=== PATIENT | female | born 1950 | race Caucasian/White ===

== ENCOUNTER → 2023-12-27 06:27 | Day surgery (SDC) | payer MEDICARE, SELFPAY | LOC: GI 06:27 | PROVIDERS: ATTENDING PHYSICIAN Internal Medicine; FAMILY PHYSICIAN Internal Medicine | DX: Z12.11 Encounter for screening for malignant neoplasm of colon (principal); Q43.8 Other specified congenital malformations of intestine; K56.2 Volvulus; K64.8 Other hemorrhoids; K64.4 Residual hemorrhoidal skin tags | CPT/HCPCS: 45378 ==

== ENCOUNTER → 2025-01-06 06:10 | Day surgery (SDC) | payer MEDICARE, SELFPAY ==
[2024-12-22 10:56] LABS: Hematocrit 43.4 % (37.0-47.0); Hemoglobin 14.4 g/dL (12.0-16.0); Mean Corp Hgb Conc. 33.2 g/dL (33.0-37.0); Mean Corpuscular Hgb 30.3 pg (27.0-31.0); Mean Corpuscular Volume 91.2 fL (81.0-99.0); Mean Platelet Volume 10.5 fL (7.4-10.4); Platelet Count 202 10^3/uL (130-400); Red Blood Cell Count 4.76 10^6/uL (4.20-5.40)
[2024-12-22 11:47] LABS: ALT (SGPT) 20 U/L (0-35); AST (SGOT) 24 U/L (14-36); Albumin 4.3 g/dl (3.5-5.0); Alkaline Phosphatase 71 U/L (38-126); Blood Urea Nitrogen 23 mg/dl (7-17); Calcium 9.8 mg/dl (8.4-10.2); Carbon Dioxide 28 mmol/L (22-30); Chloride 102 mmol/L (98-107); Glucose 134 mg/dl (70-99); Sodium 136 mmol/L (135-145); Total Bilirubin 0.8 mg/dl (0.2-1.3); Total Protein 6.5 g/dl (6.3-8.2); eGFR > 60.00
[2024-12-22 12:12] LABS: Glycohemoglobin (HgbA1c) 5.3 % (4.0-5.6)
[2024-12-22 13:49] VITALS: BMI 21.9
--- NOTE | 2024-12-23 10:22 | VNURNOTE ---
Addendum entered by Marleny Troy RN 12/23/24 11:30:
Liaison spoke with Shahla Lemus at Ortho. She will contact patient to assist w/outpt PT Rx.
Original Note:
Patient is scheduled for an elective R TKA on 01/06/25- she is a same day patient with Dr Farrell. Spoke with patient prior to surgery. Introduced role of [facility] Liaison. Patient reports that she lives with her spouse in a two story farmhouse.
There are 3 steps to a porch, then 3 DENISE. There are 12 steps to the second floor.
NO powder room on the manager entry. She ordered a raised toilet seat. She has a cane, shower chair, and a rolling walker.
she had [facility]N services after a prior TKA and was same day surgery w/ [facility].
PCP is Dr Jesse Mart
Discussed [facility] joint protocol and post surgical plans.
Reviewed that she will have VN services initially and will then start outpatient PT.
Patient selects [facility] for home care needs and will go to [facility] for outpatient PT. Pt plans on scheduling it 01/11, awaiting outpt Rx from Ortho office. Shahla at Ortho notified.
Patient is in agreement with plan and states that her spouse will be home with her. Advised to bring RW with her day of surgery. [facility] referral entered in [facility].
Plan: [facility] per [facility] joint protocol then outpt PT TBD
[2025-01-01 09:02] VITALS: BMI 21.9
[2025-01-06] VITALS (16 sets, daily range): BP systolic 88–148; BP diastolic 58–83; PULSE 67; O2SAT 96
[2025-01-06] MEDS: TYLENOL 650 MG PO (07:11)
[2025-01-06] MEDS: CELEBREX 200 MG PO (07:11)
[2025-01-06] MEDS: NORMOSOL-R/PLASMALYTE-A 1000 IV (07:17)
[2025-01-06] MEDS: ZOFRAN 4 MG IV (10:26)
[2025-01-06] MEDS: ANCEF 5 IV (11:25)
[2025-01-06] MEDS: COMPAZINE 10 MG IV (14:02)
[2025-01-06] MEDS: ROXICODONE 5 MG PO (14:02)
== END | disposition home health service (06) ==
LOC: SDS 06:10
PROVIDERS: ATTENDING PHYSICIAN Orthopaedic Surgery; FAMILY PHYSICIAN Internal Medicine; OTHER PHYSICIAN Physician Assistant
DX: M17.11 Unilateral primary osteoarthritis, right knee (principal)
CPT/HCPCS: 27447; 36415; 73560; 80053; 83036; 85027; 87070; 93005; 97116; 97162; C1713; C1776

== ENCOUNTER 2025-01-25 06:32 | Outpatient (RCR) | payer MEDICARE, SELFPAY | END 2025-01-25 23:59 | disposition home or self-care (01) | LOC: RPT 06:32 | PROVIDERS: ATTENDING PHYSICIAN Orthopaedic Surgery; FAMILY PHYSICIAN Internal Medicine | DX: Z47.1 Aftercare following joint replacement surgery (principal); Z73.6 Limitation of activities due to disability; M62.81 Muscle weakness (generalized); R26.89 Other abnormalities of gait and mobility; M25.561 Pain in right knee; Z96.651 Presence of right artificial knee joint | CPT/HCPCS: 97110; 97112; 97162; 97530 ==

== ENCOUNTER 2025-02-22 07:24 | Outpatient (RCR) | payer MEDICARE, SELFPAY | END 2025-02-22 23:59 | disposition home or self-care (01) | LOC: RPT 07:24 | PROVIDERS: ATTENDING PHYSICIAN Orthopaedic Surgery; FAMILY PHYSICIAN Internal Medicine | DX: Z47.1 Aftercare following joint replacement surgery (principal); Z73.6 Limitation of activities due to disability; M62.81 Muscle weakness (generalized); R26.89 Other abnormalities of gait and mobility; M25.561 Pain in right knee; Z96.651 Presence of right artificial knee joint | CPT/HCPCS: 97110; 97112; 97530 ==

== ENCOUNTER 2025-03-23 07:53 | Outpatient (RCR) | payer MEDICARE, SELFPAY | END 2025-03-25 12:11 | disposition home or self-care (01) | LOC: RPT 07:53 | PROVIDERS: ATTENDING PHYSICIAN Orthopaedic Surgery; FAMILY PHYSICIAN Internal Medicine | DX: Z47.1 Aftercare following joint replacement surgery (principal); M62.81 Muscle weakness (generalized); R26.89 Other abnormalities of gait and mobility; M25.561 Pain in right knee; Z73.6 Limitation of activities due to disability; Z96.651 Presence of right artificial knee joint | CPT/HCPCS: 97110; 97112; 97530 ==

== ENCOUNTER 2025-06-21 14:52 | Outpatient (RCR) | payer MEDICARE, SELFPAY | END 2025-06-21 23:59 | disposition home or self-care (01) | LOC: RST 14:52 | PROVIDERS: ATTENDING PHYSICIAN Otolaryngology; FAMILY PHYSICIAN Internal Medicine | DX: J38.7 Other diseases of larynx (principal); R49.0 Dysphonia | CPT/HCPCS: 92507; 92524 ==

== ENCOUNTER 2025-08-09 07:46 | Outpatient (RCR) | payer MEDICARE, SELFPAY | END 2025-08-09 12:55 | disposition home or self-care (01) | LOC: RST 07:46 | PROVIDERS: ATTENDING PHYSICIAN Otolaryngology; FAMILY PHYSICIAN Internal Medicine | DX: J38.7 Other diseases of larynx (principal); R49.0 Dysphonia | CPT/HCPCS: 92507 ==

== ENCOUNTER → 2025-08-31 14:27 | Outpatient (REF) | payer MEDICARE, SELFPAY | LOC: HWRAD 14:27 | PROVIDERS: ATTENDING PHYSICIAN Internal Medicine Rheumatology; FAMILY PHYSICIAN Internal Medicine | DX: M19.049 Primary osteoarthritis, unspecified hand (principal); M19.011 Primary osteoarthritis, right shoulder | CPT/HCPCS: 73030; 73120 ==

== ENCOUNTER 2025-10-14 09:26 | Outpatient (RCR) | payer MEDICARE, SELFPAY | END 2025-10-14 23:59 | disposition home or self-care (01) | LOC: RPT 09:26 | PROVIDERS: FAMILY PHYSICIAN Internal Medicine | DX: M19.011 Primary osteoarthritis, right shoulder (principal); M19.012 Primary osteoarthritis, left shoulder; Z73.6 Limitation of activities due to disability; M62.81 Muscle weakness (generalized) | CPT/HCPCS: 97010; 97110; 97162 ==